=== PATIENT | female | born 1970 | race Caucasian/White ===

== ENCOUNTER 2018-08-30 03:39 | Emergency (ER) | payer MEDICARE, OTHER ==
[~2018-08-30] VITALS: Ht 167.6 cm; Wt 100.0 kg
[2018-08-30] MEDS ORDERED: normal saline 1000ML IV soln IVB ONE (03:45)
[2018-08-30] MEDS ORDERED: ketorolac trometh. 30mg/ml inj. IV ONE (03:45)
[2018-08-30 03:59] LABS: URINE HCG NEGATIVE (NEG)
[2018-08-30 04:03] LABS: BASOPHILS % (AUTO) 0.3 % (0-1); EOSINOPHILS # (AUTO) 0.6 X10'3 (0-0.9); EOSINOPHILS % (AUTO) 4.1 % (0-6); HEMATOCRIT 42.3 % (35.0-45.0); HEMOGLOBIN 14.2 g/dl (12.0-16.0); LYMPHOCYTES # (AUTO) 3.9 X10'3 (1.1-4.8); LYMPHOCYTES % (AUTO) 27.2 % (21-51); MEAN CORPUSCULAR HGB CONC 33.6 % (33.0-36.5); MEAN CORPUSCULAR VOLUME 83.4 FL (78-98); MONOCYTES # (AUTO) 1.2 X10'3 (0-0.9); MONOCYTES % (AUTO) 8.4 % (2-12); NEUTROPHILS # (AUTO) 8.7 X10'3 (1.8-7.7); PLATELET COUNT 352 X10'3 (140-440); RED BLOOD COUNT 5.07 X10'6 (4.20-5.60); RED CELL DISTRIBUTION WIDTH 13.1 % (11.5-14.5); WHITE BLOOD COUNT 14.4 X10'3 (4.5-11.0)
[2018-08-30 04:06] LABS: CLARITY,URINE CLEAR (Clear); COLOR,URINE YELLOW (Yellow); GLUCOSE, URINE NEGATIVE (Neg); KETONES,URINE NEGATIVE (Neg); LEUKOCYTE ESTERASE ,URINE NEGATIVE (Neg); NITRITES, URINE NEGATIVE (Neg); OCCULT BLOOD,URINE NEGATIVE (Neg); PH,URINE 6.5 (4.8-8.0); PROTEIN,URINE NEGATIVE (Neg); UROBILINOGEN,URINE 0.2 E.U/dL (0.2-1.0)
[2018-08-30 04:09] LABS: UA COLLECTION TYPE CLN CATCH MIDSTREAM
[2018-08-30 04:13] LABS: ALANINE AMINOTRANSFERASE 33 U/L (12-78); ALBUMIN 3.6 G/DL (3.4-5.0); ALBUMIN/GLOBULIN RATIO 0.9 (1.1-1.5); ALKALINE PHOSPHATASE 76 IU/L (46-116); ANION GAP 12 (8-16); ASPARTATE AMINO TRANSFERASE 13 U/L (10-37); BILIRUBIN,TOTAL 0.2 MG/DL (0.1-1.0); BLOOD UREA NITROGEN 14 MG/DL (7-18); BUN/CREATININE RATIO 12.3 (6.6-38.0); CALCIUM 9.4 MG/DL (8.5-10.1); CHLORIDE 104 MMOL/L (99-107); CREATININE 1.14 MG/DL (0.40-0.90); GLUCOSE 125 MG/DL (70-104); LIPASE 220 U/L (73-393); POTASSIUM 3.6 MMOL/L (3.5-5.1); SODIUM 140 MMOL/L (135-145); TOTAL CARBON DIOXIDE 24.3 MMOL/L (24-32); TOTAL PROTEIN 7.7 G/DL (6.4-8.2); eGFR 51 ML/MIN
[2018-08-30 05:28] VITALS: BP 150/53
== END 2018-08-30 05:33 | disposition home or self-care (01) ==
LOC: ER 03:40
DX: R10.32 Left lower quadrant pain (principal); R19.7 Diarrhea, unspecified; G43.909 Migraine, unspecified, not intractable, without status migrainosus; F32.9 Major depressive disorder, single episode, unspecified; F12.10 Cannabis abuse, uncomplicated; Z90.49 Acquired absence of other specified parts of digestive tract
CPT/HCPCS: 36415; 74176; 80053; 81003; 81025; 83690; 85025; 96361; 96374; 99284; J1885; J7030

== ENCOUNTER 2018-12-27 09:50 | Outpatient (CLI) | payer MEDICARE, MEDICAID ==
[2018-12-27] MEDS ORDERED: ASPI1TAB2 PO (10:43)
[2018-12-27] MEDS ORDERED: ACET-2119 PO (10:43)
[2018-12-27] MEDS ORDERED: FLUT16SP26 (10:43)
[2018-12-27] MEDS ORDERED: IBUP-1986 PO (10:43)
[2018-12-27] MEDS ORDERED: TOPI50TA24 PO (10:43)
[2018-12-27] MEDS ORDERED: PANT20TA3 PO (10:43)
[2018-12-27] MEDS ORDERED: ARIP5TAB4 PO (10:43)
[2018-12-27] MEDS ORDERED: FLUO40CA10 PO (10:43)
[2018-12-27] MEDS ORDERED: DIPH25CA83 PO (10:43)
[2018-12-27 10:51] LABS: BASOPHILS # (AUTO) 0.1 X10'3 (0-0.2); BASOPHILS % (AUTO) 0.8 % (0-1); EOSINOPHILS # (AUTO) 0.5 X10'3 (0-0.9); EOSINOPHILS % (AUTO) 4.5 % (0-6); LYMPHOCYTES # (AUTO) 4.6 X10'3 (1.1-4.8); LYMPHOCYTES % (AUTO) 38.5 % (21-51); MEAN CORPUSCULAR HEMOGLOBIN 27.6 PG (27.0-31.0); MEAN CORPUSCULAR HGB CONC 33.5 g/dL (33.0-36.5); MEAN CORPUSCULAR VOLUME 82.5 FL (78-98); MONOCYTES % (AUTO) 8.7 % (2-12); NEUTROPHILS # (AUTO) 5.7 X10'3 (1.8-7.7); NEUTROPHILS % (AUTO) 47.5 % (42-75); PRE OP HEMATOCRIT 43.3 % (35.0-45.0); PRE OP HEMOGLOBIN 14.5 g/dL (12.0-16.0); PRE OP PLATELET COUNT 390 X10'3 (140-440); RED BLOOD COUNT 5.24 X10'6 (4.20-5.60); RED CELL DISTRIBUTION WIDTH 13.7 % (11.5-14.5)
[2018-12-27 10:55] LABS: CLARITY,URINE CLEAR (Clear); COLOR,URINE STRAW (Yellow); GLUCOSE, URINE NEGATIVE (Neg); KETONES,URINE NEGATIVE (Neg); LEUKOCYTE ESTERASE ,URINE NEGATIVE (Neg); NITRITES, URINE NEGATIVE (Neg); OCCULT BLOOD,URINE NEGATIVE (Neg); PROTEIN,URINE NEGATIVE (Neg); UROBILINOGEN,URINE 0.2 E.U/dL (0.2-1.0)
[2018-12-27 10:59] LABS: UA COLLECTION TYPE NON-SPECIFIED
[2018-12-27 10:59] LABS: HCG SERUM QL NEGATIVE
[2018-12-27 11:08] LABS: ALBUMIN 3.8 G/DL (3.4-5.0); ALBUMIN/GLOBULIN RATIO 0.9 (1.1-1.5); ALKALINE PHOSPHATASE 71 IU/L (46-116); BLOOD UREA NITROGEN 14 MG/DL (7-18); BUN/CREATININE RATIO 13.1 (6.6-38.0); CALCIUM 9.8 MG/DL (8.5-10.1); CHLORIDE 104 MMOL/L (99-107); CREATININE 1.07 MG/DL (0.40-0.90); PRE OP ALT 39 U/L (30-65); PRE OP ANION GAP 9 (8-16); PRE OP AST 17 U/L (10-37); PRE OP BILIRUB, TOTAL 0.2 MG/DL (0.0-1.0); PRE OP GLUCOSE 120 MG/DL (70-104); PRE OP SODIUM 138 MMOL/L (135-145); TOTAL CARBON DIOXIDE 24.6 MMOL/L (24-32); TOTAL PROTEIN 7.9 G/DL (6.4-8.2); eGFR 55 ML/MIN
[2018-12-27 11:11] LABS: PRE OP POTASSIUM 3.2 MMOL/L (3.4-5.1)
== END 2018-12-27 23:59 | disposition home or self-care (01) ==
LOC: PRE-OP 09:50 → EDSTATUS 01-03 11:00
PROVIDERS: ATTEND Obstetrics & Gynecology
DX: Z01.812 Encounter for preprocedural laboratory examination (principal); Z30.09 Encounter for other general counseling and advice on contraception; N92.1 Excessive and frequent menstruation with irregular cycle
CPT/HCPCS: 36415; 71046; 80053; 81003; 84703; 85025; 93005

== ENCOUNTER 2019-01-15 06:02 | Day surgery (SDC) | payer MEDICARE, MEDICAID ==
[2019-01-15] VITALS (9 sets, daily range): BP systolic 105–139; BP diastolic 55–91
[~2019-01-15] VITALS: Ht 167.6 cm; Wt 96.9 kg
[~2019-01-15 06:02] MED LIST: ACET-2119 PO; ARIP5TAB4 PO; ASPI1TAB2 PO; DIPH25CA83 PO; FLUO40CA10 PO; FLUT16SP26; IBUP-1986 PO; PANT20TA3 PO; TOPI50TA24 PO; albuterol 2.5 MG/3 ML nebule NEB ONE; famotidine 20mg tablet PO ONE
[2019-01-15] MEDS ORDERED: cefotetan 1gm/50ml IVPB 50 ML IV SCH (06:05)
[2019-01-15] MEDS ORDERED: LIDOcaine 1% (10mg/ml) 2ml vial ONE (06:13)
[2019-01-15] MEDS ORDERED: BUPIVAcaine/PF 2.5 mg/ml (0.25%) 30ml vial ONE (06:55)
[2019-01-15 07:06] LABS: ISTAT CREATININE 1.1 mg/dL (0.6-1.1); ISTAT HGB 16.3 g/dl (12.0-16.0); ISTAT IONIZED CALCIUM 1.25 mmol/L (1.03-1.32); ISTAT K 3.8 mmol/L (3.5-5.1); POC BUN/CREATININE RATIO 13.6 (6.6-38.0)
[2019-01-15 07:24] LABS: HCG SERUM QL NEGATIVE
[2019-01-15] MEDS ORDERED: fentaNYL/PF 50MCG/1 ML 2ML syringe ONE ×2 (08:20→09:13)
[2019-01-15] MEDS ORDERED: MIDAZolam 5mg/5ml vial ONE (08:20)
[2019-01-15] MEDS ORDERED: dexamethasone sod phosphate 4mg/ml inj. ONE (08:39)
[2019-01-15] MEDS ORDERED: LIDOcaine 2% (20mg/ml) 5ml vial ONE (08:40)
[2019-01-15] MEDS ORDERED: rocuronium 10mg/ml inj IV ONE (08:40)
[2019-01-15] MEDS ORDERED: ondansetron/PF 4mg/2ml inj ONE (08:40)
[2019-01-15] MEDS ORDERED: propofol inj 20 ML IV ONE (08:40)
[2019-01-15] MEDS ORDERED: labetalol 20mg/4ml (5mg/ml) syringe IV ONE (08:53)
[2019-01-15] MEDS ORDERED: ringers solution, lacted 1,000 ML IV SCH (09:03)
[2019-01-15] MEDS ORDERED: morphine 4 MG/ML inj SYRINge IV PRN ×2 (09:05)
[2019-01-15] MEDS ORDERED: fentaNYL/PF 50MCG/1 ML 2ML syringe IV PRN ×2 (09:05)
[2019-01-15] MEDS ORDERED: labetalol 20mg/4ml (5mg/ml) syringe IV PRN (09:05)
[2019-01-15] MEDS ORDERED: hydrALAZINE 20mg/ml inj. IV PRN (09:05)
[2019-01-15] MEDS ORDERED: ondansetron/PF 4mg/2ml inj IV PRN (09:05)
[2019-01-15] MEDS ORDERED: ketorolac trometh. 30mg/ml inj. ONE (09:06)
[2019-01-15] MEDS ORDERED: neostigmine methylsulfate 1 MG/ML 10ml vial ONE (09:21)
[2019-01-15] MEDS ORDERED: glycopyrrolate 0.2mg/ml inj ONE (09:21)
--- NOTE | 2019-01-15 09:36 | NUR ---
Received from OR via , accompanied by Anesthesiologist CANDY and report given by Anesthesiolgist. SLEEPY, IN NO RESP DISTRESS SKIN WARM AND DRY HOB ELEVATED ABD SOFT DONELL PAD WITH SM-MOD SSD, ABD BANDAIDES DRY, NO CO PAIN. DENTURE UPPER PLACED BACKED IN MOUTH.
--- NOTE | 2019-01-15 10:46 | NUR ---
AWAKE VS WNL, NO CO PAIN, ABD SOFT DSG DI, PERIPAD WITH NO INCREASED SSD. VOIDED. DISCH INSTR GIVEN TO PT AND SO AND UNDERSTOOD, SCRIPT GIVEN TO PT. BELONGINGS SENT WITH PT AND SO.TOLERATES LIQUIDS. HOME
[2019-01-16] MEDS ORDERED: ringers solution, lacted 1,000 ML IV SCH (05:00)
== END 2019-01-15 10:46 | disposition home or self-care (01) ==
LOC: PAS 06:02
PROVIDERS: ATTEND Obstetrics & Gynecology
DX: N92.1 Excessive and frequent menstruation with irregular cycle (principal); Z30.2 Encounter for sterilization; E66.9 Obesity, unspecified; F17.200 Nicotine dependence, unspecified, uncomplicated; R06.02 Shortness of breath; Z79.899 Other long term (current) drug therapy
CPT/HCPCS: 36415; 58353; 58661; 80047; 82948; 84703; 94640; 94760; J1100; J1885; J2001; J2250; J2405; J2704; J2710; J3010; J3490; J7030; A4355; J7120

== ENCOUNTER 2019-01-18 18:23 | Emergency (ER) | payer MEDICARE, MEDICAID ==
[~2019-01-18] VITALS: Ht 167.6 cm; Wt 97.0 kg
[~2019-01-18 18:23] MED LIST changes: -albuterol 2.5 MG/3 ML nebule NEB ONE; -famotidine 20mg tablet PO ONE
[2019-01-18 19:27] LABS: BASOPHILS # (AUTO) 0.1 X10'3 (0-0.2); BASOPHILS % (AUTO) 0.5 % (0-1); EOSINOPHILS # (AUTO) 0.7 X10'3 (0-0.9); EOSINOPHILS % (AUTO) 5.7 % (0-6); HEMOGLOBIN 14.2 g/dl (12.0-16.0); LYMPHOCYTES # (AUTO) 3.3 X10'3 (1.1-4.8); LYMPHOCYTES % (AUTO) 25.2 % (21-51); MEAN CORPUSCULAR HEMOGLOBIN 27.6 PG (27.0-31.0); MEAN CORPUSCULAR HGB CONC 33.8 g/dL (33.0-36.5); MEAN CORPUSCULAR VOLUME 81.7 FL (78-98); MONOCYTES # (AUTO) 0.9 X10'3 (0-0.9); MONOCYTES % (AUTO) 7.2 % (2-12); NEUTROPHILS % (AUTO) 61.4 % (42-75); PLATELET COUNT 335 X10'3 (140-440); RED BLOOD COUNT 5.15 X10'6 (4.20-5.60); RED CELL DISTRIBUTION WIDTH 13.6 % (11.5-14.5)
[2019-01-18 19:37] LABS: URINE HCG NEGATIVE (NEG)
[2019-01-18 19:38] LABS: CLARITY,URINE CLEAR (Clear); COLOR,URINE YELLOW (Yellow); GLUCOSE, URINE NEGATIVE (Neg); KETONES,URINE NEGATIVE (Neg); LEUKOCYTE ESTERASE ,URINE NEGATIVE (Neg); NITRITES, URINE NEGATIVE (Neg); OCCULT BLOOD,URINE TRACE-INTACT (Neg); PROTEIN,URINE NEGATIVE (Neg); UROBILINOGEN,URINE 0.2 E.U/dL (0.2-1.0)
[2019-01-18 19:40] LABS: UA COLLECTION TYPE VOIDED
[2019-01-18 19:42] LABS: ALANINE AMINOTRANSFERASE 35 U/L (12-78); ALBUMIN 3.2 G/DL (3.4-5.0); ALBUMIN/GLOBULIN RATIO 0.8 (1.1-1.5); ALKALINE PHOSPHATASE 82 IU/L (46-116); ANION GAP 6 (8-16); ASPARTATE AMINO TRANSFERASE 14 U/L (10-37); BILIRUBIN,TOTAL 0.2 MG/DL (0.1-1.0); BLOOD UREA NITROGEN 14 MG/DL (7-18); BUN/CREATININE RATIO 12.5 (6.6-38.0); CHLORIDE 103 MMOL/L (99-107); CREATININE 1.12 MG/DL (0.40-0.90); GLUCOSE 122 MG/DL (70-104); POTASSIUM 3.8 MMOL/L (3.5-5.1); SODIUM 136 MMOL/L (135-145); TOTAL CARBON DIOXIDE 27.5 MMOL/L (24-32); eGFR 52 ML/MIN
[2019-01-18 19:45] LABS: BACTERIA,URINE FEW /HPF (Neg); MUCUS STRANDS MANY /LPF (Neg); RBC,URINE 0-2 /HPF (0-2); SQUAMOUS EPITHELIAL CELL,UR MODERATE /LPF (FEW); WBC,URINE 0-4 /HPF (0-4)
[2019-01-18] MEDS ORDERED: ondansetron/PF 4mg/2ml inj IV ONE (20:10)
[2019-01-18] MEDS ORDERED: normal saline 1000ml 1,000 ML IV ONE (20:10)
[2019-01-18] MEDS ORDERED: morphine 4 MG/ML inj SYRINge IV ONE ×2 (20:10→22:45)
--- NOTE | 2019-01-18 20:13 | NUR ---
DR MONTALVO AT BEDSIDE WITH PT
[2019-01-18] MEDS ORDERED: HYDR-3965 PO (22:43)
[2019-01-18 23:15] VITALS: BP 114/78
== END 2019-01-18 23:18 | disposition home or self-care (01) ==
LOC: ER 18:25
DX: G89.18 Other acute postprocedural pain (principal); R10.84 Generalized abdominal pain; R11.2 Nausea with vomiting, unspecified; G43.909 Migraine, unspecified, not intractable, without status migrainosus; F17.200 Nicotine dependence, unspecified, uncomplicated; F12.90 Cannabis use, unspecified, uncomplicated; F32.9 Major depressive disorder, single episode, unspecified; Z90.710 Acquired absence of both cervix and uterus; Z90.49 Acquired absence of other specified parts of digestive tract; Z79.82 Long term (current) use of aspirin; Z79.899 Other long term (current) drug therapy
CPT/HCPCS: 36415; 74177; 80053; 81001; 81025; 83605; 85025; 85610; 96361; 96374; 96375; 96376; 99284; J2270; J2405; J7030; Q9967

== ENCOUNTER 2019-03-29 23:00 | Emergency (ER) | payer MEDICARE, MEDICAID ==
[~2019-03-29] VITALS: Ht 167.6 cm; Wt 100.0 kg
[2019-03-29 23:22] LABS: CLARITY,URINE CLEAR (Clear); COLOR,URINE YELLOW (Yellow); GLUCOSE, URINE NEGATIVE (Neg); KETONES,URINE NEGATIVE (Neg); LEUKOCYTE ESTERASE ,URINE NEGATIVE (Neg); NITRITES, URINE NEGATIVE (Neg); OCCULT BLOOD,URINE NEGATIVE (Neg); PROTEIN,URINE NEGATIVE (Neg); UROBILINOGEN,URINE 0.2 E.U/dL (0.2-1.0)
[2019-03-29 23:23] LABS: URINE HCG NEGATIVE (NEG)
[2019-03-29 23:24] LABS: UA COLLECTION TYPE VOIDED
[2019-03-29] MEDS ORDERED: ondansetron 4mg rapidly disintigrating tab PO ONE (23:35)
[2019-03-29] MEDS ORDERED: normal saline 1000ML IV soln IVB ONE (23:35)
[2019-03-29] MEDS ORDERED: dicyclomine 10 MG capsule PO ONE (23:35)
[2019-03-29] MEDS ORDERED: LIDOcaine Viscous 15ml cup PO ONE (23:35)
[2019-03-29] MEDS ORDERED: mag hydrox/Alum hydrox/simeth 30ml oral suspension PO ONE (23:35)
[2019-03-29 23:45] LABS: BASOPHILS # (AUTO) 0.1 X10'3 (0-0.2); BASOPHILS % (AUTO) 0.5 % (0-1); EOSINOPHILS # (AUTO) 0.4 X10'3 (0-0.9); EOSINOPHILS % (AUTO) 3.4 % (0-6); HEMATOCRIT 38.7 % (35.0-45.0); LYMPHOCYTES # (AUTO) 3.9 X10'3 (1.1-4.8); LYMPHOCYTES % (AUTO) 29.3 % (21-51); MEAN CORPUSCULAR HEMOGLOBIN 27.1 PG (27.0-31.0); MEAN CORPUSCULAR HGB CONC 33.5 g/dL (33.0-36.5); MEAN CORPUSCULAR VOLUME 80.9 FL (78-98); MEAN PLATELET VOLUME 7.9 FL (7.4-10.4); MONOCYTES # (AUTO) 1.1 X10'3 (0-0.9); MONOCYTES % (AUTO) 8.4 % (2-12); NEUTROPHILS # (AUTO) 7.8 X10'3 (1.8-7.7); NEUTROPHILS % (AUTO) 58.4 % (42-75); PLATELET COUNT 382 X10'3 (140-440); RED BLOOD COUNT 4.78 X10'6 (4.20-5.60); RED CELL DISTRIBUTION WIDTH 13.1 % (11.5-14.5); WHITE BLOOD COUNT 13.4 X10'3 (4.5-11.0)
[2019-03-30 00:04] LABS: ALANINE AMINOTRANSFERASE 47 U/L (12-78); ALBUMIN 3.2 G/DL (3.4-5.0); ALBUMIN/GLOBULIN RATIO 0.7 (1.1-1.5); ALKALINE PHOSPHATASE 114 IU/L (46-116); ANION GAP 13 (8-16); ASPARTATE AMINO TRANSFERASE 20 U/L (10-37); BILIRUBIN,TOTAL 0.2 MG/DL (0.1-1.0); BLOOD UREA NITROGEN 11 MG/DL (7-18); BUN/CREATININE RATIO 8.1 (6.6-38.0); CALCIUM 9.7 MG/DL (8.5-10.1); CHLORIDE 107 MMOL/L (99-107); CREATININE 1.36 MG/DL (0.40-0.90); GLUCOSE 163 MG/DL (70-104); POTASSIUM 3.4 MMOL/L (3.5-5.1); SODIUM 142 MMOL/L (135-145); TOTAL PROTEIN 7.5 G/DL (6.4-8.2); eGFR 41 ML/MIN
[2019-03-30] MEDS ORDERED: ketorolac tromethamine 15mg/ml inj. IV ONE (00:45)
[2019-03-30] MEDS ORDERED: ONDA4TAB6 PO (01:13)
[2019-03-30] MEDS ORDERED: FAMO20TA8 PO (01:13)
[2019-03-30] MEDS ORDERED: DICY10CA88 PO (01:13)
[2019-03-30 01:23] VITALS: BP 150/90
[2019-03-31] MEDS ORDERED: HYDR-4383 PO (23:53)
[2019-03-31] MEDS ORDERED: NAPR-56 PO (23:53)
[2019-03-31] MEDS ORDERED: ONDA4TAB6 PO (23:53)
== END 2019-03-30 01:23 | disposition home or self-care (01) ==
LOC: ER 23:00
DX: R10.11 Right upper quadrant pain (principal); R11.2 Nausea with vomiting, unspecified; R19.7 Diarrhea, unspecified; G43.909 Migraine, unspecified, not intractable, without status migrainosus; F32.9 Major depressive disorder, single episode, unspecified; F17.200 Nicotine dependence, unspecified, uncomplicated; F12.90 Cannabis use, unspecified, uncomplicated; Z79.899 Other long term (current) drug therapy; Z90.49 Acquired absence of other specified parts of digestive tract; Z90.710 Acquired absence of both cervix and uterus
CPT/HCPCS: 36415; 80053; 81003; 81025; 85025; 85610; 96361; 96374; 99284; J1885; J2405; J7030

== ENCOUNTER 2019-03-31 21:17 | Emergency (ER) | payer MEDICARE, MEDICAID ==
[~2019-03-31] VITALS: Ht 167.6 cm; Wt 98.0 kg
[~2019-03-31 21:17] MED LIST changes: +DICY10CA88 PO; +FAMO20TA8 PO; +ONDA4TAB6 PO
[2019-03-31 22:10] LABS: BASOPHILS % (AUTO) 0.4 % (0-1); EOSINOPHILS # (AUTO) 0.3 X10'3 (0-0.9); HEMATOCRIT 37.4 % (35.0-45.0); HEMOGLOBIN 12.6 g/dl (12.0-16.0); LYMPHOCYTES # (AUTO) 2.9 X10'3 (1.1-4.8); LYMPHOCYTES % (AUTO) 25.2 % (21-51); MEAN CORPUSCULAR HEMOGLOBIN 27.4 PG (27.0-31.0); MEAN CORPUSCULAR HGB CONC 33.8 g/dL (33.0-36.5); MEAN CORPUSCULAR VOLUME 81.1 FL (78-98); MEAN PLATELET VOLUME 7.6 FL (7.4-10.4); MONOCYTES # (AUTO) 0.9 X10'3 (0-0.9); MONOCYTES % (AUTO) 7.9 % (2-12); NEUTROPHILS # (AUTO) 7.2 X10'3 (1.8-7.7); NEUTROPHILS % (AUTO) 63.5 % (42-75); PLATELET COUNT 362 X10'3 (140-440); RED BLOOD COUNT 4.61 X10'6 (4.20-5.60); RED CELL DISTRIBUTION WIDTH 12.8 % (11.5-14.5); WHITE BLOOD COUNT 11.3 X10'3 (4.5-11.0)
[2019-03-31 22:12] LABS: UA COLLECTION TYPE CLN CATCH MIDSTREAM
[2019-03-31 22:14] LABS: CLARITY,URINE CLEAR (Clear); COLOR,URINE YELLOW (Yellow); GLUCOSE, URINE NEGATIVE (Neg); KETONES,URINE NEGATIVE (Neg); LEUKOCYTE ESTERASE ,URINE NEGATIVE (Neg); NITRITES, URINE NEGATIVE (Neg); OCCULT BLOOD,URINE NEGATIVE (Neg); PROTEIN,URINE NEGATIVE (Neg); UROBILINOGEN,URINE 0.2 E.U/dL (0.2-1.0)
[2019-03-31 22:15] LABS: URINE HCG NEGATIVE (NEG)
[2019-03-31] MEDS ORDERED: normal saline 1000ML IV soln IVB ONE (22:20)
[2019-03-31] MEDS ORDERED: ondansetron/PF 4mg/2ml inj IV ONE (22:20)
[2019-03-31] MEDS ORDERED: morphine 4 MG/ML inj SYRINge IV PRN (22:20)
[2019-03-31 22:23] LABS: ALANINE AMINOTRANSFERASE 41 U/L (12-78); ALBUMIN 3.1 G/DL (3.4-5.0); ALBUMIN/GLOBULIN RATIO 0.7 (1.1-1.5); ALKALINE PHOSPHATASE 124 IU/L (46-116); ANION GAP 13 (8-16); ASPARTATE AMINO TRANSFERASE 17 U/L (10-37); BILIRUBIN,TOTAL 0.2 MG/DL (0.1-1.0); BLOOD UREA NITROGEN 15 MG/DL (7-18); BUN/CREATININE RATIO 11.4 (6.6-38.0); CALCIUM 8.8 MG/DL (8.5-10.1); CHLORIDE 107 MMOL/L (99-107); CREATININE 1.32 MG/DL (0.40-0.90); GLUCOSE 146 MG/DL (70-104); POTASSIUM 3.8 MMOL/L (3.5-5.1); SODIUM 141 MMOL/L (135-145); TOTAL PROTEIN 7.4 G/DL (6.4-8.2); eGFR 43 ML/MIN
[2019-03-31 22:43] LABS: LIPASE 1777 U/L (73-393)
[2019-03-31] MEDS ORDERED: morphine 4 MG/ML inj SYRINge IV ONE (23:50)
[2019-03-31] MEDS ORDERED: ketorolac trometh. 30mg/ml inj. IV ONE (23:50)
[2019-03-31] MEDS ORDERED: ONDA4TAB6 PO (23:53)
[2019-03-31] MEDS ORDERED: NAPR-56 PO (23:53)
[2019-03-31] MEDS ORDERED: HYDR-4383 PO (23:53)
[2019-04-01 00:18] VITALS: BP 143/88
== END 2019-04-01 00:19 | disposition home or self-care (01) ==
LOC: ER 21:17
DX: K85.90 Acute pancreatitis without necrosis or infection, unspecified (principal); R00.0 Tachycardia, unspecified; G43.909 Migraine, unspecified, not intractable, without status migrainosus; F32.9 Major depressive disorder, single episode, unspecified; F12.90 Cannabis use, unspecified, uncomplicated; Z90.49 Acquired absence of other specified parts of digestive tract; Z90.710 Acquired absence of both cervix and uterus; Z98.890 Other specified postprocedural states; Z79.82 Long term (current) use of aspirin; Z79.899 Other long term (current) drug therapy
CPT/HCPCS: 36415; 71045; 74176; 80053; 81003; 81025; 83690; 85025; 85610; 93005; 96374; 96375; 96376; 99284; J1885; J2270; J2405; J7030

== ENCOUNTER 2020-04-25 14:27 | Emergency (ER) | payer MEDICAID, MEDICARE ==
[~2020-04-25] VITALS: Ht 167.6 cm; Wt 109.1 kg
[~2020-04-25 14:27] MED LIST changes: +ARIP5TAB14 PO; -ARIP5TAB4 PO; +HYDR-4383 PO; +PANT20TA18 PO; -PANT20TA3 PO
[2020-04-25 15:57] VITALS: BP 128/85
[2020-04-25 16:13] LABS: BASOPHILS # (AUTO) 0.1 X10'3 (0-0.2); BASOPHILS % (AUTO) 0.8 % (0-1); EOSINOPHILS # (AUTO) 0.7 X10'3 (0-0.9); EOSINOPHILS % (AUTO) 6.7 % (0-6); HEMATOCRIT 42.6 % (35.0-45.0); HEMOGLOBIN 14.5 g/dl (12.0-16.0); LYMPHOCYTES # (AUTO) 3.2 X10'3 (1.1-4.8); LYMPHOCYTES % (AUTO) 30.6 % (21-51); MEAN CORPUSCULAR HEMOGLOBIN 28.6 PG (27.0-31.0); MEAN CORPUSCULAR HGB CONC 33.9 g/dL (33.0-36.5); MEAN CORPUSCULAR VOLUME 84.3 FL (78-98); MEAN PLATELET VOLUME 7.7 FL (7.4-10.4); MONOCYTES # (AUTO) 0.9 X10'3 (0-0.9); MONOCYTES % (AUTO) 8.5 % (2-12); NEUTROPHILS # (AUTO) 5.7 X10'3 (1.8-7.7); NEUTROPHILS % (AUTO) 53.4 % (42-75); PLATELET COUNT 353 X10'3 (140-440); RED BLOOD COUNT 5.06 X10'6 (4.20-5.60); WHITE BLOOD COUNT 10.6 X10'3 (4.5-11.0)
[2020-04-25 16:30] LABS: ALANINE AMINOTRANSFERASE 49 U/L (12-78); ALBUMIN 3.7 G/DL (3.4-5.0); ALKALINE PHOSPHATASE 67 IU/L (46-116); ANION GAP 9 (8-16); ASPARTATE AMINO TRANSFERASE 23 U/L (10-37); BILIRUBIN,TOTAL 0.2 MG/DL (0.1-1.0); BLOOD UREA NITROGEN 16 MG/DL (7-18); BUN/CREATININE RATIO 14.2 (6.6-38.0); CHLORIDE 103 MMOL/L (99-107); CREATININE 1.13 MG/DL (0.40-0.90); GLUCOSE 144 MG/DL (70-104); POTASSIUM 3.8 MMOL/L (3.5-5.1); SODIUM 139 MMOL/L (135-145); TOTAL PROTEIN 7.5 G/DL (6.4-8.2); eGFR 51 ML/MIN
[2020-04-25 16:51] LABS: PARTIAL THROMBOPLASTIN TIME 26 SECONDS (22-32)
[2020-04-26 13:21] LABS: OCCULT BLOOD STOOL POSITIVE (Neg)
== END 2020-04-25 18:04 | disposition home or self-care (01) ==
LOC: ER 14:28
DX: K92.2 Gastrointestinal hemorrhage, unspecified (principal); G43.909 Migraine, unspecified, not intractable, without status migrainosus; M06.9 Rheumatoid arthritis, unspecified; F32.9 Major depressive disorder, single episode, unspecified; F12.90 Cannabis use, unspecified, uncomplicated; Z98.890 Other specified postprocedural states; Z79.899 Other long term (current) drug therapy
CPT/HCPCS: 36415; 80053; 82272; 85025; 85610; 85730; 99283

== ENCOUNTER 2021-11-28 13:34 | Emergency (ER) | payer MEDICARE, MEDICAID | END 2021-11-28 15:35 | disposition left against medical advice (07) | LOC: ER 13:35 | DX: R42 Dizziness and giddiness (principal); Z53.21 Procedure and treatment not carried out due to patient leaving prior to being seen by health care provider ==

== ENCOUNTER 2024-08-14 13:28 | Emergency (ER) | payer MEDICARE, MEDICAID ==
[~2024-08-14] VITALS: Ht 167.6 cm; Wt 104.3 kg
[~2024-08-14 13:28] MED LIST changes: +ARIP5TAB12 PO; -ARIP5TAB14 PO; +METO-292 PO; +MOXI400T32 PO; +TOPI-95 PO; -TOPI50TA24 PO
[2024-08-14 13:41] VITALS: BP 121/76; PULSE 89; RESP 16; TEMP 98.2; O2SAT 98
[2024-08-14 14:08] LABS: BASOPHILS # (AUTO) 0.1 X10'3 (0-0.2); BASOPHILS % (AUTO) 0.8 % (0-1); EOSINOPHILS # (AUTO) 0.6 X10'3 (0-0.9); EOSINOPHILS % (AUTO) 4.4 % (0-6); HEMATOCRIT 42.3 % (35.0-45.0); HEMOGLOBIN 14.1 g/dl (12.0-16.0); LYMPHOCYTES # (AUTO) 3.9 X10'3 (1.1-4.8); LYMPHOCYTES % (AUTO) 27.6 % (21-51); MEAN CORPUSCULAR HEMOGLOBIN 28.2 PG (27.0-31.0); MEAN CORPUSCULAR HGB CONC 33.4 g/dL (33.0-36.5); MEAN CORPUSCULAR VOLUME 84.6 FL (78-98); MONOCYTES # (AUTO) 0.9 X10'3 (0-0.9); MONOCYTES % (AUTO) 6.3 % (2-12); NEUTROPHILS # (AUTO) 8.5 X10'3 (1.8-7.7); NEUTROPHILS % (AUTO) 60.9 % (42-75); PLATELET COUNT 438 X10'3 (140-440); RED CELL DISTRIBUTION WIDTH 12.7 % (11.5-14.5)
[2024-08-14 14:20] LABS: URINE HCG NEGATIVE (NEG)
[2024-08-14 14:21] LABS: BILIRUBIN,URINE NEGATIVE (Neg); CLARITY,URINE SLIGHTLY CLOUDY (Clear); COLOR,URINE YELLOW (Yellow); GLUCOSE, URINE NEGATIVE (Neg); KETONES,URINE NEGATIVE (Neg); LEUKOCYTE ESTERASE ,URINE SMALL (Neg); NITRITES, URINE NEGATIVE (Neg); OCCULT BLOOD,URINE NEGATIVE (Neg); PROTEIN,URINE NEGATIVE (Neg); UROBILINOGEN,URINE 0.2 E.U/dL (0.2-1.0)
[2024-08-14 14:25] LABS: UA COLLECTION TYPE CLN CATCH MIDSTREAM
[2024-08-14 14:27] LABS: ALANINE AMINOTRANSFERASE 39 U/L (12-78); ALBUMIN/GLOBULIN RATIO 1.1 (1.1-1.5); ALKALINE PHOSPHATASE 48 IU/L (46-116); ANION GAP 8 (8-16); ASPARTATE AMINO TRANSFERASE 21 U/L (10-37); BILIRUBIN,TOTAL 0.4 MG/DL (0.1-1.0); BLOOD UREA NITROGEN 16 MG/DL (7-18); BUN/CREATININE RATIO 14.3 (10.0-20.0); CALCIUM 10.1 MG/DL (8.5-10.1); CHLORIDE 102 MMOL/L (99-107); CREATININE 1.12 MG/DL (0.40-0.90); GLUCOSE 139 MG/DL (70-104); LIPASE 48 U/L (16-77); POTASSIUM 4.4 MMOL/L (3.5-5.1); SODIUM 138 MMOL/L (135-145); TOTAL CARBON DIOXIDE 28.5 MMOL/L (24-32); TOTAL PROTEIN 7.7 G/DL (6.4-8.2); eCRCL 54 ML/MIN; eGFR 51 ML/MIN
[2024-08-14 14:27] LABS: WBC,URINE 20-30 /HPF (0-4)
[2024-08-14 14:28] LABS: AMORPHOUS URATES 1+; BACTERIA,URINE 2+ /HPF (Neg); RENAL CELLS, URINE FEW /HPF; SQUAMOUS EPITHELIAL CELL,UR MODERATE /LPF (FEW); TRANSITIONAL EPI CELLS,URINE FEW /HPF
== END 2024-08-14 18:58 | disposition left against medical advice (07) ==
LOC: ER 13:29
DX: R11.2 Nausea with vomiting, unspecified (principal); R19.7 Diarrhea, unspecified; Z53.21 Procedure and treatment not carried out due to patient leaving prior to being seen by health care provider
CPT/HCPCS: 36415; 80053; 81001; 81025; 83690; 85025; 87088